=== PATIENT | female | born 1980 | race African-American/Black ===

== ENCOUNTER 2016-11-13 22:32 | Observation (INO) | payer MEDICAID ==
[~2016-11-13] VITALS: Ht 162.6 cm; Wt 85.7 kg
== END 2016-11-14 01:00 | disposition home or self-care (01) ==
LOC: L&D 22:32
PROVIDERS: ADMIT Obstetrics & Gynecology; ATTEND Obstetrics & Gynecology
DX: O26.892 Other specified pregnancy related conditions, second trimester (principal); R10.30 Lower abdominal pain, unspecified; Z3A.21 21 weeks gestation of pregnancy
CPT/HCPCS: 76805; 99281; G0378

== ENCOUNTER 2018-07-14 20:10 | Emergency (ER) | payer OTHER, MEDICARE ==
[~2018-07-14] VITALS: Ht 165.1 cm; Wt 89.0 kg
[2018-07-14] MEDS ORDERED: AMLODIPINE 10MG TABLET PO ONE (22:30)
[2018-07-14] MEDS ORDERED: LABETALOL HCL 100MG TABLET PO ONE (22:45)
[2018-07-14 23:09] LABS: HEMATOCRIT 35.5 % (36.0-48.0); MEAN CORPUSCULAR HEMOGLOBIN 27.4 pg (28.0-32.0); MEAN CORPUSCULAR VOLUME 81.2 fL (81.0-99.0); PLATELET 238 x1000/uL (130-400); RED BLOOD CELL COUNT 4.37 mill/uL (4.2-5.4); RED CELL DISTRIBUTION WIDTH 13.7 % (11.6-14.6)
[2018-07-14 23:18] LABS: CHLORIDE 102 mEq/L (98-107)
[2018-07-14 23:43] LABS: B-HCG QUANTITATIVE 3132 mIU/mL (<3)
[2018-07-15] MEDS ORDERED: POTASSIUM CHLORIDE 20MEQ TABLET SR PO NR (01:00)
[2018-07-15 01:17] VITALS: BP 199/124
== END 2018-07-15 01:23 | disposition home or self-care (01) ==
LOC: ER 20:10
DX: O16.1 Unspecified maternal hypertension, first trimester (principal); O99.331 Smoking (tobacco) complicating pregnancy, first trimester; F17.200 Nicotine dependence, unspecified, uncomplicated; Z3A.00 Weeks of gestation of pregnancy not specified; R05 Cough
CPT/HCPCS: 36415; 81025; 84702; 85027; 99283